=== PATIENT | male | born 1990 | race Caucasian/White ===

== ENCOUNTER 2025-03-13 10:56 | Emergency (ER) | payer OTHER, SELFPAY ==
[2025-03-13 11:04] VITALS: BP 147/86; PULSE 87; RESP 20; TEMP 36.4; O2SAT 98
--- NOTE | 2025-03-13 11:25 | ED.URI ---
HPI - URI/Sore Throat General Chief Complaint: Upper Respiratory Infection Stated Complaint: poss flu Time Seen by Provider: 03/13/25 11:25 Source: patient, RN notes reviewed and old records reviewed Mode of arrival: ambulatory Limitations: no limitations History of Present Illness HPI Narrative: 35 year old male states that he has a cough and is fatigued and has body aches which are worse that usual. He states that he has some mild discomfort across his abdomen when he bends over, denies any acid reflux feelings or any radiation of pain or any incidence of vomiting or diarrhea. Patient reports no shortness of breath or any pain with deep breathing. Patient states that he wants tested for COVID or Flu. Patient very vague about symptoms, has not taken any OTC medications for his symptoms. MD elicited complaint: cough and other (body aches) Onset (ago): hour(s) (for past 24 hours) Pain scale (0-10): 2 Description of mucous: clear Able to tolerate fluids by mouth: Yes Treatments prior to arrival: none Related Data Home Medications ?Medication ?Instructions ?Recorded ?Confirmed ?Last Taken ?Type esomeprazole magnesium 40 mg mg 03/13/25 Unknown History capsule,delayed release insulin degludec 100 unit/mL (3 unit subcut 03/13/25 Unknown History mL) subcutaneous pen (Tresiba FlexTouch U-100 insulin) levothyroxine 125 mcg tablet mcg 03/13/25 Unknown History metformin 500 mg tablet mg 03/13/25 Unknown History Allergies Allergy/AdvReac Type Severity Reaction Status Date / Time monjaro Allergy Unknown Unknown Uncoded 03/13/25 11:15 Review of Systems Review of Systems: CONSTITUTIONAL: Denies malaise, chills, sweats, or fever. EYES: Denies visual changes, redness, or discharge. ENT: Reports no rhinorrhea, congestion, sinus pain,no otalgia and no sore throat. CARDIOVASCULAR: Denies chest pain, palpitations, or edema. RESPIRATORY: Reports cough.? Denies dyspnea. GASTROINTESTINAL: states some mild pain across abdomen when he bends over,denies nausea, vomiting, diarrhea or any feelings of acid reflux or back pain SKIN: Denies rash or itching. MUSCULOSKELETAL:reports some myalgia which is worse for the past day. NEUROLOGIC: Denies headache. All systems reviewed & are unremarkable except as noted in HPI and below PMFSH Past Medical History Medical History (Updated 03/13/25 @ 12:18 by Valerie Mojica APRN) GERD (gastroesophageal reflux disease) Hypothyroidism Morbid obesity Diabetes Social History Social History (Updated 03/13/25 @ 12:12 by Valerie Mojica APRN) Smoking status: Never smoker Alcohol intake: unknown Substance use: unknown Living arrangements: with family Gender identity (if verbalized by the patient): Male Comments At time of signature, agree with nursing past medical, surgical, social and family history. There is no relevant family history pertinent to the presenting complaint Exam Narrative: GENERAL: Well-appearing, well-nourished, morbidly obese,and in no acute distress. HEAD: Normocephalic EYES: PERRLA, conjunctivae clear ENT: Nares clear, turbinates edematous and erythematous, clear discharge. Mucous membranes moist. TM pearly gabriel with dull light reflex bilaterally; no tragal tenderness. Oropharynx erythematous without lesions. Tonsils not enlarged and without exudate, no drooling, no hoarseness, no trismus, uvula midline.post nasal drainage.post nasal drainage NECK: Supple. No lymphadenopathy CHEST: Clear to auscultation, breath sounds equal. No wheezing, rhonchi, rales, or stridor. No respiratory distress, speaks in full sentences.occasional cough reported denies any shortness of breath, SAO2 98% on room air Abdomen: soft nontender to palpation rounded obese no McBurney point tenderness. negative Sales test, no bulges or masses noted, no nausea vomiting or diarrhea, states some mild pain when he bends over otherwise no pain at rest. HEART: Regular rate and rhythm. No murmur heard. SKIN: Warm, dry, no rash. NEURO: Alert and oriented x3. PSYCH: Normal mood and affect Course Course Level of Care: Express Care Visit Vital Signs Vital signs: Vital Signs Temperature 36.4 C 03/13/25 11:04 Pulse Rate 87 03/13/25 11:04 Respiratory Rate 20 03/13/25 11:04 Blood Pressure 147/86 H 03/13/25 11:04 Pulse Oximetry 98 03/13/25 11:04 Oxygen Delivery Room Air 03/13/25 11:04 Temperature 36.4 C 03/13/25 11:04 Pulse Rate 87 03/13/25 11:04 Respiratory Rate 20 03/13/25 11:04 Blood Pressure 147/86 H 03/13/25 11:04 Pulse Oximetry 98 03/13/25 11:04 Oxygen Delivery Room Air 03/13/25 11:04 reviewed [facility] Narrative Medical decision making narrative: 35 year old male with cough and some nasal drainage with fatigue and no fevers reported, some body aches worse for the past 24 hours with some pain across abdomen described as mild ache when he bends over.Patient requested testing for flu and COVID which were negative. Patient appropriate for outpatient follow up with anticipatory guidance and reasons to seek care in ED reviewed (especially if abdomen pain becomes severe or if any nausea vomiting or diarrhea associated with pain.) Differential Diagnosis Differential Diagnosis: Differential diagnostic considerations for upper respiratory infection include upper respiratory infection, croup, otitis media, sinusitis, viral infection, bronchitis, influenza, pharyngitis, strep, uvulitis.? Lab Data [facility] Lab Attestation statement: I personally reviewed the patient's lab results. Lab results narrative: Covid antigen negative. Influenza A&B negative Labs: Lab Results 03/13/25 Range/Units 11:10 POC Influenza A Ag Negative (Negative) POC Influenza B Ag Negative (Negative) POC SARS CoV-2 Ag Negative (Negative) reviewed Critical Care Time Critical Care Time Critical Care Time: No Discharge Plan Discharge Clinical Impression: Upper respiratory infection Qualifiers: URI type: unspecified URI Qualified Code(s): J06.9 - Acute upper respiratory infection, unspecified Patient Disposition: Home Condition: Stable Instructions: Upper Respiratory Infection (ED) Additional Instructions: Increase fluids especially juices and water [id number] cough and cold medicine of your choice for your symptoms recommend Delsym or Robitussin Tylenol or Ibuprofen for any fever or pain per package instruction. heat to the face 20-30 minutes 4-6 times a day for pain Salt water gargles, throat lozenges or throat sprays as desired If your symptoms persist, change or worsen significantly before you can contact your personal physician then please, without delay, go to the emergency department for further evaluation. Follow-up with PCP in 7-10 days or sooner if needed Follow up with PCP soon in regards to your blood pressure which is elevated above threshold for referral. Blood pressure above 120/80 may indicate pre-hypertension. blood pressure 147/86 Patient Language: Azeri Prescriptions: No Action metformin 500 mg tablet esomeprazole magnesium 40 mg capsule,delayed release(DR/EC) levothyroxine 125 mcg tablet insulin degludec [Tresiba FlexTouch U-100] 100 unit/mL (3 mL) insulin pen SUBCUT Follow-up/Referrals: PHYSICIAN NOT ON STAFF,NONSTAFF [Primary Care Provider] Time of Disposition: 11:45 Quality [place] Coma Scale Eyes: Open Verbal: Oriented and Alert Motor: Follows Commands Helga Coma Total Score: 15
[2025-03-13 12:01] LABS: EDCOVIDSCREEN Negative (Negative); EDINFLUASCREEN Negative (Negative); EDINFLUBSCREEN Negative (Negative)
== END 2025-03-13 11:51 | disposition home or self-care (01) ==
PROVIDERS: Emergency Provider Registered Nurse
DX: J06.9 Acute upper respiratory infection, unspecified (principal); Z20.822 Contact with and (suspected) exposure to COVID-19; E11.9 Type 2 diabetes mellitus without complications; Z79.4 Long term (current) use of insulin; Z79.84 Long term (current) use of oral hypoglycemic drugs; E03.9 Hypothyroidism, unspecified; K21.9 Gastro-esophageal reflux disease without esophagitis; E66.01 Morbid (severe) obesity due to excess calories; Z68.43 Body mass index [BMI] 50.0-59.9, adult
CPT/HCPCS: 87426; 87804; 99202; G0463